=== PATIENT | female | born 1975 ===

== ENCOUNTER 2018-12-09 19:05 | Observation (INO) ==
[2018-12-09] MEDS ORDERED: Aspirin 325 MG TABLET PO ONE ×2 (19:32→19:57)
[2018-12-09 19:36] LABS: Basophils # 0.1 K/mcL (0.0-0.2); Basophils % 0.7 %; Eosinophils # 0.2 K/mcL (0.0-0.6); Eosinophils % 2.7 %; Hematocrit 47.3 % (35.3-44.9); Hemoglobin 15.7 g/dL (11.5-15.4); Immature Granulocytes % 0.3 % (0-4); Lymphocytes # 2.2 K/mcL (0.6-4.6); Lymphocytes % 31.6 %; Mean Corpuscular HGB Conc 33.2 g/dL (31.6-35.5); Mean Corpuscular Hemoglobin 31.1 pg (28.0-33.3); Mean Corpuscular Volume 93.7 fL (83.0-100.0); Monocytes # 0.5 K/mcL (0.0-1.3); Monocytes % 6.8 %; Neutrophils # 4.1 K/mcL (1.6-8.9); Platelet Count 235 K/mcL (140-400); Red Blood Count 5.05 M/mcL (3.82-4.97); Red Cell Distribution Width 12.9 % (11.5-14.5); Segmented Neutrophils % 57.9 %; White Blood Count 7.1 K/mcL (4.3-11.1)
[2018-12-09] MEDS: Nitroglycerin 0.4 MG TAB.SUBL SL SCH ×2 (19:41→23:49)
[2018-12-09 19:44] LABS: INR 0.9; Prothrombin Time 10.2 Seconds (9.4-12.1)
[2018-12-09 19:47] LABS: Activated Partial Thrombo Time 30.5 Seconds (26.0-36.0)
[2018-12-09] MEDS ORDERED: Isovue-370 500 ML BOTTLE IVP ONE (19:56)
[2018-12-09 20:00] LABS: Alanine Aminotransferase 12 Units/L (7-52); Albumin 4.8 g/dL (3.5-5.7); Albumin/Globulin Ratio 1.8 (1.1-2.2); Alkaline Phosphatase 66 Units/L (34-104); Aspartate Amino Transferase 14 Units/L (13-39); BUN/Creatinine Ratio 18 (6-26); Bilirubin,Direct 0.1 mg/dL (0.0-0.2); Bilirubin,Indirect 0.4 mg/dL (0.0-1.2); Bilirubin,Total 0.5 mg/dL (0.3-1.0); Blood Urea Nitrogen 12 mg/dL (6-20); Calcium 9.8 mg/dL (8.6-10.3); Carbon Dioxide 23 mEq/L (23-29); Chloride 106 mEq/L (98-107); Globulin 2.7 g/dL (2.4-3.5); Glucose 111 mg/dL (70-105); Lipase 27 Units/L (11-82); Osmolality,Calculated 290 (280-300); Potassium 3.7 mEq/L (3.5-5.1); Sodium 140 mEq/L (136-145); Total Protein 7.5 g/dL (6.4-8.9); Troponin I < 0.03 ng/mL (< 0.04); eGFR For African Americans > 60 (> 60); eGFR For Non-African Americans > 60 (> 60)
[2018-12-09] MEDS ORDERED: Ketorolac 30 MG/ML VIAL IVP ONE (22:21)
[2018-12-09] MEDS ORDERED: Nitroglycerin 1 INCH/GM PACKET TP ONE (22:25)
[2018-12-10] MEDS ORDERED: Naloxone 0.4 MG/ML INJ IVP PRN (00:20)
[2018-12-10] MEDS ORDERED: *HR* Heparin 5,000 UNIT/ML VIAL SQ SCH (06:00)
[2018-12-10] MEDS ORDERED: Regadenoson 0.4 MG/5 ML SYRINGE IVP ONE (06:47)
[2018-12-10 07:13] LABS: Basophils % 0.7 %; Eosinophils # 0.2 K/mcL (0.0-0.6); Eosinophils % 2.6 %; Hemoglobin 14.2 g/dL (11.5-15.4); Immature Granulocytes % 0.3 % (0-4); Lymphocytes # 1.6 K/mcL (0.6-4.6); Lymphocytes % 27.5 %; Mean Corpuscular HGB Conc 33.8 g/dL (31.6-35.5); Mean Corpuscular Hemoglobin 31.5 pg (28.0-33.3); Mean Corpuscular Volume 93.1 fL (83.0-100.0); Mean Platelet Volume 9.9 fL (9.4-12.4); Monocytes # 0.6 K/mcL (0.0-1.3); Monocytes % 9.5 %; Neutrophils # 3.5 K/mcL (1.6-8.9); Platelet Count 209 K/mcL (140-400); Red Blood Count 4.51 M/mcL (3.82-4.97); Red Cell Distribution Width 12.9 % (11.5-14.5); Segmented Neutrophils % 59.4 %; White Blood Count 5.8 K/mcL (4.3-11.1)
[2018-12-10 07:34] LABS: BUN/Creatinine Ratio 17 (6-26); Blood Urea Nitrogen 12 mg/dL (6-20); Carbon Dioxide 23 mEq/L (23-29); Chloride 108 mEq/L (98-107); Glucose 117 mg/dL (70-105); Osmolality,Calculated 289 (280-300); Potassium 4.2 mEq/L (3.5-5.1); Sodium 139 mEq/L (136-145); Troponin I < 0.03 ng/mL (< 0.04); eGFR For African Americans > 60 (> 60); eGFR For Non-African Americans > 60 (> 60)
[2018-12-10] MEDS ORDERED: Ibuprofen 600 MG TABLET PO PRN (11:17)
[2018-12-10] MEDS ORDERED: hydrOXYzine pamoate 25 MG CAPSULE PO PRN (13:20)
[2018-12-10] MEDS ORDERED: Topiramate 25 MG TABLET PO SCH (13:30)
[2018-12-10] MEDS ORDERED: Venlafaxine XR (24 HR) 75 MG CAP.ER.24H PO SCH (13:30)
[2018-12-10] MEDS ORDERED: Gabapentin 300 MG CAPSULE PO SCH (15:00)
[2018-12-10 15:11] VITALS: BP 105/65
[2018-12-10] MEDS ORDERED: Budesonide/Formoterol 160/4.5 1 PUFF INH IH SCH (22:00)
[2018-12-11] MEDS ORDERED: Loratadine 10 MG TABLET PO SCH (09:00)
== END 2018-12-10 16:53 | disposition home or self-care (01) ==
LOC: 3BNU 19:05 → EMEROOARM 19:05 → 3BNU 23:00
PROVIDERS: ADMIT Pediatrics; ATTEND Pediatrics